=== PATIENT | female | born 1995 | race Caucasian/White ===

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

== ENCOUNTER 2017-03-07 13:11 | Emergency (ER) | payer BC ==
[~2017-03-07] VITALS: Wt 101.0 kg
[~2017-03-07 13:11] MED LIST: ALBU8.5H3 INH; IBUP-1542 PO; LORA-441 PO
[2017-03-07 14:15] LABS: ADD UMIC YES; URINE BILIRUBIN (Dip) NEGATIVE (NEGATIVE); URINE BLOOD (Dip) 3+ (NEGATIVE); URINE COLOR LT. YELLOW (YELLOW); URINE GLUCOSE (Dip) NEGATIVE (NEGATIVE); URINE KETONES (Dip) NEGATIVE (NEGATIVE); URINE LEUKOCYTE ESTERASE (Dip) 3+ (NEGATIVE); URINE NITRITE (Dip) POSITIVE (NEGATIVE); URINE TOTAL PROTEIN (Dip) 2+ (NEGATIVE); URINE UROBILINOGEN (Dip) 0.2 E.U./dL (0.1-1.0)
[2017-03-07] MEDS ORDERED: PHENAZOPYRIDINE 100 MG TAB PO ONE (14:30)
[2017-03-07] MEDS ORDERED: IBUPROFEN 600 MG TAB PO ONE (14:30)
[2017-03-07] MEDS ORDERED: CEPHALEXIN 500 MG CAP PO ONE (14:30)
[2017-03-07 14:44] LABS: BACTERIA,URINE MODERATE; URINE RBCS >50 /HPF (0)
[2017-03-07] MEDS ORDERED: CEPH-443 PO (15:16)
[2017-03-07] MEDS ORDERED: IBUP-1542 PO (15:16)
[2017-03-07] MEDS ORDERED: PHEN-538 PO (15:16)
--- NOTE | 2017-03-07 15:20 | ERD ---
ER Documentation Chief Complaint Date/Time DATE: 03/07/17 TIME: 15:18 Chief Complaint DYSURIA WITHOUT HEMATURIA SINCE 2 DAYS. NO N/V. NO BACK PAIN HPI This 21-year-old female presents with dysuria and hematuria for 2 days. She denies fevers, vomiting. She has mild suprapubic pain but denies any right or left or upper abdominal pain. She denies any previous history of UTI ROS All systems reviewed and are negative except as per history of present illness. Medications Home Meds Active Scripts Ibuprofen* (Motrin*) 600 Mg Tab, 600 MG PO Q6, #15 TAB Prov:ALEXNADRU TODD MD 03/07/17 Phenazopyridine Hcl* (Pyridium*) 200 Mg Tab, 200 MG PO TID Y for URINARY PAIN, # 6 TAB Prov:ALEXANDRU TODD MD 03/07/17 Cephalexin* (Keflex*) 500 Mg Capsule, 500 MG PO QID for 5 Days, CAP Prov:ALEXANDRU TODD MD 03/07/17 Albuterol Sulfate* (Proair HFA*) 8.5 Gm Hfa.aer.ad, 2 PUFF INH Q4, #1 INHALER Prov:MILTON AVELAR PA-C 10/20/16 Ibuprofen* (Motrin*) 600 Mg Tab, 600 MG PO Q6, #30 TAB Prov:MILTON AVELAR PA-C 10/20/16 Lorazepam* (Ativan*) 0.5 Mg Tablet, 0.5 MG PO Q8, #10 TAB Prov:MILTON AVELAR PA-C 10/20/16 Allergies Allergies: Coded Allergies: amoxicillin (Verified Allergy, Unknown, 10/20/16) PMhx/Soc History of Surgery: No Anesthesia Reaction: No Hx Neurological Disorder: No Hx Respiratory Disorders: No Hx Cardiac Disorders: No Hx Psychiatric Problems: No Hx Miscellaneous Medical Probl: No Hx Alcohol Use: No Hx Substance Use: No Hx Tobacco Use: No Physical Exam Vitals Vital Signs Date Time Temp Pulse Resp B/P Pulse Ox O2 Delivery O2 Flow Rate FiO2 03/07/17 13:13 98.1 74 20 137/72 98 Physical Exam Const: [] Alert, [id number] per Head: Atraumatic Eyes: Normal Conjunctiva ENT: Normal External Ears, Nose and Mouth. Neck: Full range of motion..~ No meningismus. Resp: Clear to auscultation bilaterally Cardio: Regular rate and rhythm, no murmurs Abd: Soft, mild suprapubic tenderness. No tenderness at McBurney's point no Domingo sign no rebound, non distended. Normal bowel sounds Skin: No petechiae or rashes Back: No midline or flank tenderness Ext: No cyanosis, or edema Neur: Awake and alert Psych: Normal Mood and Affect Results 24 hrs Laboratory Tests Test 03/07/17 13:55 Urine Color LT. YELLOW Urine Clarity TURBID Urine pH 7.0 Urine Specific [place] 1.020 Urine Ketones NEGATIVE Urine Nitrite POSITIVE Urine Bilirubin NEGATIVE Urine Urobilinogen 0.2 E.U./dL Urine Leukocyte Esterase 3+ Urine Microscopic RBC >50/HPF Urine Microscopic WBC >200/HPF Urine Epithelial Cells FEW Urine Bacteria MODERATE Urine Hemoglobin 3+ Urine Glucose NEGATIVE% Urine Total Protein 2+ Current Medications Medications (Trade) Dose Ordered Sig/Sreedhar Route PRN Reason Start Time Stop Time Status Last Admin Dose Admin Cephalexin (Keflex) 500 mg ONCE ONCE PO 03/07/17 14:30 03/07/17 14:31 DC 03/07/17 14:25 Ibuprofen (Motrin) 600 mg ONCE ONCE PO 03/07/17 14:30 03/07/17 14:31 DC 03/07/17 14:25 Phenazopyridine HCl (Pyridium) 200 mg ONCE ONCE PO 03/07/17 14:30 03/07/17 14:31 DC 03/07/17 14:25 Procedures/MDM HCG is negative. Urine shows positive leukocytes, nitrites and hemoglobin. Patient was given Keflex 500 mg, Pyridium 200 mg ibuprofen for pain. Patient presents with signs and symptoms of acute cystitis without signs or symptoms of PID, appendicitis, pyelonephritis, sepsis, acute abdomen. She will treated with Keflex and Pyridium at home and ibuprofen instructions for clear fluids. The patient was stable with no new complaints during the ER course. Clinically, there is no current evidence to suggest meningitis, sepsis, acute abdomen, pneumonia, acute coronary syndrome, pulmonary embolism, or any other emergent condition appearing to require further evaluation or hospitalization. The patient should certainly return for any new or worsening symptoms per the aftercare instructions. They should otherwise follow-up with her primary care doctor for reevaluation this week. Departure Diagnosis: Primary Impression: UTI (urinary tract infection) Urinary tract infection type: acute cystitis Hematuria presence: without hematuria Qualified Code: N30.00 - Acute cystitis without hematuria Condition: Stable Patient Instructions: Understanding Urinary Tract Infections (UTIs) Additional Instructions: URINE SHOW INFECTION. Drink plenty of fluids at home. Return for fevers, vomiting, new worsening symptoms. ALEXANDRU TODD MD Mar 07, 2017 15:20
== END 2017-03-07 15:26 | disposition home or self-care (01) ==
LOC: FTE 13:11
DX: N30.00 Acute cystitis without hematuria (principal)
CPT/HCPCS: 81001; 99283; Z7610